=== PATIENT | male | born 1990 | race Two or more races ===

== ENCOUNTER 2018-09-20 18:44 | Inpatient (IN) | payer OTHER ==
[~2018-09-20] VITALS: Ht 170.2 cm; Wt 74.7 kg
[2018-09-20 20:46] LABS: BASOPHILS # (AUTO) 0.03 x10^3/uL (0-0.1); BASOPHILS % (AUTO) 0 % (0-1); EOSINOPHILS # (AUTO) 0.05 x10^3/uL (0-0.4); EOSINOPHILS % (AUTO) 1 % (1-7); LYMPHOCYTES # (AUTO) 2.05 x10^3/uL (1-3.4); LYMPHOCYTES % (AUTO) 22 % (22-44); MD NO; MEAN CORPUSCULAR HEMOGLOBIN 31.7 pg (27.5-34.5); MEAN CORPUSCULAR HGB CONC 34.8 g/dL (33.2-36.2); MEAN CORPUSCULAR VOLUME 91.2 fL (81-97); MEAN PLATELET VOLUME 9.4 fL (7.4-10.4); MONOCYTES # (AUTO) 0.81 x10^3/uL (0.2-0.8); MONOCYTES % (AUTO) 9 % (2-9); NEUTROPHILS # (AUTO) 6.36 x10^3/uL (1.8-6.8); NEUTROPHILS % (AUTO) 68 % (42-75); PLATELET COUNT 252 x10^3/uL (130-400); RED BLOOD COUNT 5.56 x10^6/uL (4.38-5.82); RED CELL DISTRIBUTION WIDTH 13.6 % (9.4-14.8)
[2018-09-20 20:48] LABS: HCT (SEDRATE) 50.7 % (39.2-51.8)
[2018-09-20 20:55] LABS: CHLORIDE 104 mmol/L (98-107)
[2018-09-20 20:56] LABS: ALBUMIN 4.8 g/dL (3.4-5.0); ANION GAP 8 mmol/L (5-15); CALCIUM 9.6 mg/dL (8.5-10.1); CREATININE 1.22 mg/dL (0.7-1.3)
[2018-09-20] MEDS ORDERED: GADOBUTROL 7.5 MMOL/7.5 ML PFS ONE (22:49)
[2018-09-20 23:21] VITALS: BP 109/72
[2018-09-21] MEDS ORDERED: DIPHENHYDRAMINE 25 MG CAPSULE PO PRN
[2018-09-21] MEDS ORDERED: DOCUSATE 100 MG CAPSULE PO PRN
[2018-09-21] MEDS ORDERED: ACETAMINOPHEN 325 MG TABLET PO PRN
[2018-09-21] MEDS ORDERED: ONDANSETRON ODT 4 MG PO PRN
[2018-09-21 00:29] VITALS: BP 124/77
[2018-09-21] MEDS: PLEASE ENTER ALLERGIES MC SCH ×2 (00:30→08:30)
[2018-09-21 07:12] VITALS: BP 133/74
[2018-09-21] MEDS ORDERED: methylPREDNISolone SOD SUCC 125 MG/2 ML IVPush SCH (13:00)
[2018-09-21 14:07] VITALS: BP 127/77
[2018-09-21 18:23] VITALS: BP 117/75
[2018-09-22 00:24] VITALS: BP 120/61
[2018-09-22] MEDS: HEPARIN 5,000 UNITS/ML, 1ML SQ SCH ×3 (07:41→23:36)
[2018-09-22 09:22] VITALS: BP 107/63
[2018-09-22] MEDS ORDERED: SUMATRIPTAN 6MG/0.5ML SQ PRN (12:00)
[2018-09-22] MEDS: VALPROATE SODIUM 500 MG in DEXTROSE 5% 100 ML IV PRN ×2 (13:38→19:56)
[2018-09-22 15:57] VITALS: BP 122/57
[2018-09-22 19:08] VITALS: BP 115/60
[2018-09-22 19:53] VITALS: BP 134/53
[2018-09-23] MEDS ORDERED: SUMATRIPTAN 6MG/0.5ML SQ PRN (01:00)
[2018-09-23] MEDS: VALPROATE SODIUM 500 MG in DEXTROSE 5% 100 ML IV PRN ×2 (02:00→08:18)
[2018-09-23 02:01] VITALS: BP 119/66
[2018-09-23 06:54] VITALS: BP 137/69
[2018-09-23] MEDS: HEPARIN 5,000 UNITS/ML, 1ML SQ SCH ×2 (08:18→15:00)
[2018-09-23 12:49] VITALS: BP 128/74
[2018-09-23] MEDS ORDERED: DIVA-61 PO (13:22)
[2018-09-23] MEDS ORDERED: SUMA6VIA SQ (13:22)
[2018-09-23 18:26] VITALS: BP 104/53
[2018-09-23] MEDS ORDERED: DIVALPROEX 500 MG TABLET.DR PO SCH (21:00)
== END 2018-09-23 19:00 | disposition home or self-care (01) | DRG 103 ==
LOC: ED 21:10 → EDIP 21:28 → 3NE 23:15
PROVIDERS: ADMIT Internal Medicine; ATTEND Family Medicine
DX: G43.909 Migraine, unspecified, not intractable, without status migrainosus (principal); H53.40 Unspecified visual field defects; H54.61 Unqualified visual loss, right eye, normal vision left eye; J45.909 Unspecified asthma, uncomplicated; Z77.098 Contact with and (suspected) exposure to other hazardous, chiefly nonmedicinal, chemicals; Z90.49 Acquired absence of other specified parts of digestive tract
CPT/HCPCS: 36415; 70543; 70553; 80048; 82040; 82164; 85025; 85549; 85651; 86618; 86780; A9585; G0378; J1644; J2930; J3030; J7512